=== PATIENT | female | born 2005 | race Hispanic/Latino ===

== ENCOUNTER 2025-01-15 04:28 | Emergency (ER) | payer SELFPAY ==
[2025-01-15 04:29] VITALS: BP 116/72; PULSE 95; RESP 18; TEMP 37.4; O2SAT 100; BMI 29.5
--- NOTE | 2025-01-15 04:58 | EKG12_ITS ---
Test Reason : CP Blood Pressure : */* mmHG Vent. Rate : 90 BPM Atrial Rate : 90 BPM P-R Int : 128 ms QRS Dur : 80 ms QT Int : 352 ms P-R-T Axes : 9 35 5 degrees QTcB Int : 430 ms Normal sinus rhythm Normal ECG Confirmed by JOSE RAUL JAIMES, CELSA ([id number]), editor & co founder SOLEDAD DALEY ([id number]) on 01/20/2025 6:19:10 AM Referred By: Confirmed By: CELSA BLUNT MD
--- NOTE | 2025-01-15 05:00 | RAD_ITS ---
PROCEDURE: CHEST PA AND LATERAL 01/15/2025 REASON FOR EXAM: CHEST PAIN TECHNIQUE: Procedure Code: RADCXR Modality: DX Procedure: CHEST PA AND LATERAL COMPARISON: None available. FINDINGS: The lungs are adequately aerated bilaterally without pleural effusion, pneumothorax, or focal airspace disease. Atheromatous changes of the aorta without cardiomegaly. Osseous structures are age-appropriate. RAD/Chest PA and Lateral IMPRESSION: No evidence of acute cardiopulmonary abnormality. Reading Location: [facility]
--- NOTE | 2025-01-15 05:01 | EDS_ITS ---
HPI History of Present Illness Chief Complaint: Chest Pain Informant: patient and spouse/S.O. Narrative Narrative: Patient is a 19-year-old female who reports no significant past medical history. She states she was at work yesterday and she noticed a vague mild mid epigastric/lower chest discomfort. She states that it was present throughout the rest of the day and evening but only mild in nature and she was able to go to bed with. She states however she woke up an hour or so prior to arrival and had increasing discomfort. She states that there is no associated nausea vomiting diaphoresis or shortness of breath. She states that her sister has lupus and has had some type of heart problem but she denies any known history of cardiac disease at a young age. She also states that there is no illicit drug use or excessive stimulant use. She denies any palpitations or tachycardia associated with her symptoms. However as they are persistent and now progressive she presents for evaluation [facility] Medical History no medical history no medical history Home Medications ?Medication ?Instructions ?Recorded ?Last Taken ?Type famotidine 20 mg tablet (Pepcid) 20 mg PO BID 30 days #60 tabs 01/15/25 Unknown Rx Allergy/AdvReac Type Severity Reaction Status Date / Time No Known Allergies Allergy Verified 01/15/25 04:30 Family History no significant family his Surgical History no surgical history Social History Smoking Status: Never smoker [facility] ED Constitutional Constitutional ED: Denies chills or fever(s) Eyes Eyes: Denies blurry vision or change in vision ENT ENT ED: Denies sore throat Cardiovascular Cardiovascular: Reports chest pain; Denies palpitations or racing heartbeat Respiratory/Chest Respiratory/Chest: Denies cough or dyspnea Gastrointestinal Gastrointestinal: Reports abdominal pain; Denies diarrhea, nausea or vomiting Genitourinary Genitourinary ED: Denies dysuria Musculoskeletal Musculoskeletal: Denies back pain or myalgias Integumentary Denies rash Neurologic Neurologic: Denies headache(s) Hematologic/Lymphatic Hematologic/Lymphatic: Denies easy bleeding or easy bruising EXAM Physical Exam Const Vital Signs: 01/15/25 04:29 01/15/25 05:29 Temperature 99.3 F H Temperature Source Oral Pulse Rate 95 79 Respiratory Rate 18 16 Blood Pressure 116/72 106/67 Blood Pressure Mean 86 80 Pulse Ox 100 100 Oxygen Delivery Method Room Air Room Air Positive well nourished and well developed General Appearance ED: well developed; Negative for pallor HEENT HEENT Narrative: Normocephalic atraumatic Eyes PERRL and EOMs intact bilaterally General Eye ED: Negative for scleral icterus Neck supple and no JVD Chest Wall Chest Narrative: There is reproducible midsternal chest pain with palpation No bony deformity or subcutaneous emphysema Resp normal respiratory effort and clear to auscultation bilaterally Cardio regular rate and regular rhythm Rate: other Other Details: Regular rate and rhythm without murmurs rubs or gallops Radial and carotid pulses are equal and symmetric No carotid bruits noted GI non-distended and no masses GI Narrative: Abdomen is soft and nondistended with normal active bowel sounds. Patient has pain with palpation in the midepigastric region without voluntary guarding or rigidity No pulsatile mass or fluid wave Negative Welch sign No peritoneal signs Auscultation: normoactive bowel sounds Palpation: soft Extremity normal to inspection Extremity Narrative: No asymmetric edema no pitting edema negative Homans' sign bilaterally Neuro oriented x3, CN's II-XII intact bilaterally and no sensory deficits noted Sensorium / Orientation: alert Motor Exam: strength 5/5 throughout Psych mental status grossly normal Skin no rashes or lesions noted and no wounds General Skin Exam: Negative for jaundice or pallor MDM MDM MDM Narrative Medical decision making narrative: Patient arrived to the ER with stable vitals. She reported a vague upper abdominal/lower chest discomfort that been present for over 12 hours and has recently increased in severity. Differential diagnosis is for acute coronary syndrome versus cardiac dysrhythmia versus gastritis/GERD versus pancreatitis or potential biliary colic. There is also concern for lung pathology such as pneumonia or pneumothorax or potential pulmonary embolus, patient's EKG showed sinus rhythm without ischemic changes and her troponin is less than 6 which correlates with this indicating no signs of cardiac event. Lipase is normal going against pancreatitis. Liver enzymes are normal going against biliary colic. D-dimer is normal going against pulmonary embolus. Chest x-ray revealed no acute lung pathology. On reevaluation patient's vitals have remained stable and she is resting comfortably. Therefore as workup would indicate this is most likely gastritis/GERD and not a PE or dissection or coronary event there is no need for further intervention and she is otherwise safe for discharge History & Record Review Discussion w/independent historian: Patient and Significant other Lab Data Attestation: I reviewed the patient's lab results. Labs: Laboratory Results - last 24 hr 01/15/25 04:37 WBC 10.4 RBC 4.89 Hgb 13.5 Hct 41.0 MCV 83.8 MCH 27.6 MCHC 32.9 RDW Std Deviation 42.1 RDW Coeff of Clemencia 13.7 Plt Count 349 MPV 9.5 Immature Gran % (Auto) 0.200 Neut % (Auto) 72.8 H Lymph % (Auto) 17.7 L [place] % (Auto) 6.9 Eos % (Auto) 2.1 Baso % (Auto) 0.3 Absolute Neuts (auto) 7.6 Absolute Lymphs (auto) 1.83 Nucleated RBC % 0 D-Dimer Quant (PE/DVT) 0.47 Sodium 138 Potassium 4.0 Chloride 105 Carbon Dioxide 22.4 Anion Gap 11 BUN 16 Creatinine 0.73 Estim Creat Clear Calc 115.16 Est GFR (MDRD) Non-Af 120 BUN/Creatinine Ratio 21.9 H Glucose 103 H Calcium 9.2 Total Bilirubin 0.26 Direct Bilirubin 0.08 AST 21 ALT 17 Alkaline Phosphatase 60 Troponin T High Sens < 6 Total Protein 7.5 Albumin 4.2 Globulin 3.3 Lipase 35 Serum , Qual NEGATIVE Radiography Diagnostic Testin view chest x-ray as interpreted by the emergency medicine physician reveals no acute infiltrate pneumothorax pleural effusion or widened mediastinum Discharge Plan Triage Chief Complaint: Chest Pain ED Provider: Kamari Bob Dx/Rx/DC Orders Clinical Impression: Acute nonspecific chest pain with low risk of coronary artery disease Instructions: GERD Dc, ED Chest Pain, Uncertain Cause Prescriptions: New famotidine [Pepcid] 20 mg tablet 20 mg PO BID 30 Days Qty: 60 0RF Stand Alone Forms: Work / School Excuse Primary Care Provider: Care Physician,No Primary Referrals: Care Physician,No Primary [Primary Care Provider, Medical] Activity Restrictions/Additional Instructions: Your workup today revealed no findings of abnormal heart rhythm or active heart damage. There is no findings of gallbladder disease or pancreatitis and your x- ray revealed no lung pathology such as pneumonia. Your discomfort is most likely due to acid reflux/GERD. Therefore take the prescribed medication as directed to help control symptoms and return to the ER should you have any further concern Print Language: [place] Disposition Disposition: Home, Self Care
[2025-01-15] MEDS: Lidocaine 2% Viscous15 ML UDC 15 ML PO (05:02)
[2025-01-15 05:05] LABS: Hematocrit 41.0 % (37-47); Hemoglobin 13.5 g/dL (12.0-15.0); Immature Granulocytes Count 0.020 X10^3/uL (0.0-0.0); Mean Corp Hgb Conc 32.9 g/dL (32-36); Mean Corpuscular Volume 83.8 fL (81-99); Mean Platelet Vol. 9.5 fl (6.2-12.0); NRBC Flagged by Analyzer 0 % (0-5); Platelet Count 349 K/mm3 (150-450); RBC Distribution Width CV 13.7 % (11.6-14.6); RBC Distribution Width SD 42.1 fl (35.1-43.9); Red Blood Count 4.89 M/mm3 (4.2-5.4); White Blood Count 10.4 K/mm3 (4.4-11.0)
[2025-01-15 05:13] LABS: Internal QC Validated? YES +Cl - CLEAR BKGD; Pregnancy, Serum, hCG Quali. NEGATIVE Negative
[2025-01-15 05:16] LABS: D-Dimer Quantitative (DVT/PE) 0.47 FEU/ug/m (0.27-0.49)
[2025-01-15 05:28] LABS: Lipase 35 U/L (13-75); Troponin T High Sensitivity < 6 ng/L (<=14)
[2025-01-15 05:29] VITALS: BP 106/67; PULSE 79; RESP 16; O2SAT 100
[2025-01-15] MEDS: Pantoprazole Sodium 40 MG in 0.9% Normal Saline (100mL MB+) 100 ML 300 MG IV (05:33)
[2025-01-15 05:42] LABS: AST(SGOT) 21 U/L (<=31); Alanine Aminotransfer ALT/SGPT 17 U/L (<=34); Albumin, Serum 4.2 g/dL (3.5-5.0); Alkaline Phosphatase 60 U/L (35-104); Anion Gap 11 (5-15); BUN 16 mg/dL (4-19); BUN/Creat Ratio 21.9 RATIO (10-20); Bilirubin, Direct 0.08 mg/dL (0.00-0.30); Calcium,Total 9.2 mg/dL (7.6-11.0); Carbon Dioxide 22.4 mmol/L (21.0-32.0); Chloride 105 mmol/L (98-108); Estimated Creatinine Clearance 115.16 ml/min (50-250); Globulin 3.3 g/dL (2.2-4.2); Glucose 103 mg/dL (70-99); Potassium 4.0 mmol/L (3.3-5.1)
[2025-01-15 06:00] VITALS: BP 111/71; PULSE 87; RESP 16; O2SAT 100
[2025-01-15 06:05] VITALS: BP 111/71; PULSE 87; RESP 16; TEMP 36.9; O2SAT 100
== END 2025-01-15 06:14 | disposition home or self-care (01) ==
PROVIDERS: Emergency Provider Emergency Medicine; Visit Provider Emergency Medicine
DX: R07.89 Other chest pain (principal)
CPT/HCPCS: 71046; 80048; 80076; 83690; 84484; 84703; 85025; 85379; 93005; 96365; 99282; A4216